=== PATIENT | female | born 2000 | race Caucasian/White ===

== ENCOUNTER 2021-01-23 15:52 | Outpatient (CLI) | payer OTHER | END 2021-01-23 19:21 | disposition home or self-care (01) | LOC: GENOP 15:52 | DX: O23.593 Infection of other part of genital tract in pregnancy, third trimester (principal); Z3A.35 35 weeks gestation of pregnancy; O36.8130 Decreased fetal movements, third trimester, not applicable or unspecified; O99.513 Diseases of the respiratory system complicating pregnancy, third trimester; J06.9 Acute upper respiratory infection, unspecified; O32.1XX0 Maternal care for breech presentation, not applicable or unspecified; Z20.822 Contact with and (suspected) exposure to COVID-19 | CPT/HCPCS: 59025; 96360; 96366; 96367; 96372; J0702; J7120; U0002 ==

== ENCOUNTER 2021-01-24 13:56 | Outpatient (CLI) | payer OTHER | END 2021-01-24 14:30 | disposition home or self-care (01) | LOC: GENOP 13:56 | DX: O47.03 False labor before 37 completed weeks of gestation, third trimester (principal); Z3A.35 35 weeks gestation of pregnancy; O32.1XX0 Maternal care for breech presentation, not applicable or unspecified | CPT/HCPCS: 96372; J0702 ==

== ENCOUNTER 2021-01-30 04:29 | Outpatient (CLI) | payer OTHER | END 2021-01-30 08:37 | disposition home or self-care (01) | LOC: GENOP 04:29 | PROVIDERS: Obstetrics & Gynecology | DX: O47.03 False labor before 37 completed weeks of gestation, third trimester (principal); Z3A.35 35 weeks gestation of pregnancy; O32.1XX0 Maternal care for breech presentation, not applicable or unspecified | CPT/HCPCS: 80307; 81001; 96360; 96361 ==

== ENCOUNTER 2021-02-03 09:32 | Inpatient (IN) | payer OTHER ==
[~2021-02-03] VITALS: Ht 172.7 cm; Wt 136.1 kg
[2021-02-03 10:13] LABS: HEMOGLOBIN 12.4 gm/dl (12.3-15.3); RED BLOOD COUNT 5.01 M/UL (4.00-5.10); WHITE BLOOD COUNT 12.6 K/UL (4.5-11.0)
[2021-02-03] MEDS ORDERED: IBUPROFEN800 MG PO (14:40)
[2021-02-03] MEDS ORDERED: COLACE100 MG PO (14:40)
[2021-02-03] MEDS ORDERED: HEMOCYTE324 MG PO (14:40)
[2021-02-03] MEDS ORDERED: PERCOCET 5/325 T1 EA PO (14:40)
[2021-02-04 04:41] LABS: HEMOGLOBIN 9.6 gm/dl (12.3-15.3)
== END 2021-02-05 15:18 | disposition home or self-care (01) | DRG 787 ==
LOC: GENOP 09:32 → CDU 10:00 → OB 10:00
PROVIDERS: ADMIT Obstetrics & Gynecology
PROC: 4A1HXCZ Monitoring of Products of Conception, Cardiac Rate, External Approach (ICD-10-PCS; 2021-02-03)
PROC: 10D00Z1 Extraction of Products of Conception, Low, Open Approach (ICD-10-PCS; principal; 2021-02-03 12:13)
DX: O32.1XX0 Maternal care for breech presentation, not applicable or unspecified (principal); D62 Acute posthemorrhagic anemia; Z3A.37 37 weeks gestation of pregnancy; Z20.822 Contact with and (suspected) exposure to COVID-19; Z37.0 Single live birth; O99.214 Obesity complicating childbirth; E66.9 Obesity, unspecified; O99.344 Other mental disorders complicating childbirth; F32.A Depression, unspecified; O99.62 Diseases of the digestive system complicating childbirth; O99.52 Diseases of the respiratory system complicating childbirth; J45.909 Unspecified asthma, uncomplicated; O90.81 Anemia of the puerperium; Z83.3 Family history of diabetes mellitus; Z82.49 Family history of ischemic heart disease and other diseases of the circulatory system; K21.9 Gastro-esophageal reflux disease without esophagitis
CPT/HCPCS: 36415; 85014; 85018; 85025; C9113; J0690; J1885; J2274; J2370; J2405; J2590; J2795; J3010; J3105; J7120; U0002

== ENCOUNTER 2021-03-06 02:42 | Emergency (ER) | payer OTHER ==
[~2021-03-06 02:42] MED LIST: COLACE100 MG PO; HEMOCYTE324 MG PO; IBUPROFEN800 MG PO; PERCOCET 5/325 T1 EA PO
[2021-03-06 04:16] LABS: HEMOGLOBIN 12.1 gm/dl (12.3-15.3); RED BLOOD COUNT 4.94 M/UL (4.00-5.10); WHITE BLOOD COUNT 12.1 K/UL (4.5-11.0)
[2021-03-06 04:29] LABS: BUN/CREATININE RATIO 28 (0-10)
[2021-03-06] MEDS ORDERED: AUGMENTIN 875-1 EACH PO (05:54)
[2021-03-06] MEDS ORDERED: BENTYL 20MG TAB20 MG PO (05:54)
[2021-03-06] MEDS ORDERED: ZOFRAN ODT 4 MG4 MG PO (05:54)
[2021-03-06] MEDS ORDERED: LODINE CAP 300300 MG PO (05:57)
== END 2021-03-06 06:03 | disposition home or self-care (01) ==
LOC: ER1 02:42
PROVIDERS: Physician Assistant
DX: O90.89 Other complications of the puerperium, not elsewhere classified (principal); R10.9 Unspecified abdominal pain; R10.813 Right lower quadrant abdominal tenderness; R10.821 Right upper quadrant rebound abdominal tenderness
CPT/HCPCS: 80053; 81001; 82150; 83690; 85025; 87086; 96374; 96375; 99284; J1200; J1885; J2270; J2405; J2930; Q9967

== ENCOUNTER 2021-03-26 02:47 | Emergency (ER) | payer OTHER ==
[~2021-03-26 02:47] MED LIST changes: +AUGMENTIN 875-1 EACH PO; +BENTYL 20MG TAB20 MG PO; +LODINE CAP 300300 MG PO; +ZOFRAN ODT 4 MG4 MG PO
[2021-03-26 03:22] LABS: HEMOGLOBIN 11.7 gm/dl (12.3-15.3); RED BLOOD COUNT 4.85 M/UL (4.00-5.10); WHITE BLOOD COUNT 10.9 K/UL (4.5-11.0)
[2021-03-26 04:30] LABS: BUN/CREATININE RATIO 29 (0-10)
[2021-03-26] MEDS ORDERED: PERCOCET 5/325 T1 EA PO (08:27)
[2021-03-29] MEDS ORDERED: PRENATAL VITAM1 EAC5 PO (06:35)
[2021-03-29] MEDS ORDERED: PERCOCET 5/325 T1 EA PO (12:41)
== END 2021-03-26 08:40 | disposition home or self-care (01) ==
LOC: ER1 02:47
PROVIDERS: Family Medicine
DX: R10.9 Unspecified abdominal pain (principal); R10.813 Right lower quadrant abdominal tenderness
CPT/HCPCS: 80053; 81001; 83690; 85025; 96365; 96375; 99284; J1885; J2550; Q9967

== ENCOUNTER → 2021-03-29 | Day surgery (SDC) | payer OTHER ==
[~2021-03-29] MED LIST changes: +PRENATAL VITAM1 EAC5 PO
== END | disposition home or self-care (01) ==
LOC: OR 05:19
DX: K81.2 Acute cholecystitis with chronic cholecystitis (principal); K35.80 Unspecified acute appendicitis; E66.9 Obesity, unspecified; Z68.41 Body mass index [BMI] 40.0-44.9, adult; Z88.5 Allergy status to narcotic agent; Z91.018 Allergy to other foods; Z79.899 Other long term (current) drug therapy; Z20.822 Contact with and (suspected) exposure to COVID-19
CPT/HCPCS: 84703; C1729; J0690; J1100; J1170; J2001; J2250; J2405; J2704; J3010; J7030; J7120

== ENCOUNTER → 2021-07-17 | Outpatient (CLI) | payer OTHER | LOC: LAB 17:51 | DX: Z32.00 Encounter for pregnancy test, result unknown (principal) | CPT/HCPCS: 84702 ==

== ENCOUNTER 2021-10-07 14:08 | Emergency (ER) | payer OTHER ==
[2021-10-07 15:39] LABS: HEMOGLOBIN 12.3 gm/dl (12.3-15.3); RED BLOOD COUNT 4.83 M/UL (4.00-5.10); WHITE BLOOD COUNT 12.4 K/UL (4.5-11.0)
[2021-10-07 16:01] LABS: BUN/CREATININE RATIO 20 (0-10)
[2021-10-07] MEDS ORDERED: CEFUROXIME500 MG PO (16:54)
== END 2021-10-07 17:19 | disposition home or self-care (01) ==
LOC: ER1 14:08
PROVIDERS: Preventive Medicine Occupational Medicine
DX: O23.42 Unspecified infection of urinary tract in pregnancy, second trimester (principal); N39.0 Urinary tract infection, site not specified; O99.891 Other specified diseases and conditions complicating pregnancy; N28.9 Disorder of kidney and ureter, unspecified; Z3A.16 16 weeks gestation of pregnancy
CPT/HCPCS: 76805; 80053; 81001; 83690; 85025; 87086; 96374; 99284; J0696